=== PATIENT | male | born 1975 | race Caucasian/White ===

== ENCOUNTER 2020-03-27 12:38 | Emergency (ER) | payer OTHER ==
--- NOTE | 2020-03-27 12:44 | TELE ---
HPI Do you have fever,cough or shortness of breath?: No - General Reason For Visit: COVID History Source: Patient Exam Limitations: No Limitations - History of Present Illness 03/27/20 12:42 44 year old male with recent COVID 19 positive contact without any symptoms requesting covid testing. Past History - Medical History Allergies/Adverse Reactions: Allergies Allergy/AdvReac Type Severity Reaction Status Date / Time No Known Allergies Allergy Verified 11/22/13 07:36 Home Medications: Ambulatory Orders No Home Medications 0 dose .ROUTE UTDICT 11/22/13 - Psycho-Social/Smoking History Smoking History: Never smoked Have you smoked in the past 12 months: No *Physical Exam - Physical Exam 03/27/20 12:43 Unable to conduct PE as videochat unavailable - Medical Decision Making 03/27/20 12:43 P to precede to [facility] for COVID 19 testing Quarantine instructions given Discharge Diagnosis at time of Disposition: COVID-19 - Referrals Follow-up Referral(s): Clement Becker MD [Primary Care Provider] - - Patient Instructions Discharge Instructions: [facility]-Coronavirus Instructions - Discharge Disposition: HOME Condition at time of Disposition: Stable
== END 2020-03-27 12:45 | disposition home or self-care (01) ==
LOC: JVIRT 12:38
DX: Z03.818 Encounter for observation for suspected exposure to other biological agents ruled out (principal)
CPT/HCPCS: 99441-95; C9803; U0003